=== PATIENT | male | born 2000 | race Caucasian/White ===

== ENCOUNTER 2025-01-17 08:47 | Outpatient (CLI) | payer OTHER, SELFPAY | END 2025-01-17 08:48 | disposition home or self-care (01) | LOC: NFLDREF 08:49 | PROVIDERS: PCP Family Medicine; Visit Provider Family Medicine | DX: Z11.1 Encounter for screening for respiratory tuberculosis (principal); R82.90 Unspecified abnormal findings in urine | CPT/HCPCS: 86480; 87086 ==